=== PATIENT | male | born 1990 ===

== ENCOUNTER 2016-11-25 04:12 | Emergency (ER) | payer MEDICAID ==
[2016-11-25 04:13] VITALS: BMI 34.7
[2016-11-25 04:29] VITALS: BP 131/83; PULSE 71; RESP 16; TEMP 97.9; O2SAT 97
[2016-11-25] MEDS: Sodium Chloride 0.9% 1,000 ML IV STA (05:02)
[2016-11-25 05:07] LABS: BASO % 0.3 % (0.0-2.0); EOS # 0.1 K/uL (0.0-0.7); EOS % 1.6 % (0.0-4.0); HEMATOCRIT 42.8 % (35.0-51.0); LYMPH % 23.1 % (20.0-40.0); MEAN CELL VOLUME 89.4 fl (80.0-94.0); MEAN CORPUSCULAR HEMOGLOBIN 30.9 pg (27.0-31.0); MEAN CORPUSCULAR HGB CONC 34.6 g/dL (33.0-37.0); MEAN PLATELET VOLUME 8.4 fl (7.2-11.7); MONO % 12.2 % (0.0-10.0); NEUT # 5.4 K/uL (1.8-7.0); NEUT % 62.8 % (50.0-75.0); NRBC % 0.2 % (0.0-0.0); RED CELL DISTRIBUTION WIDTH 12.5 % (11.5-14.5); WHITE BLOOD COUNT 8.6 K/uL (4.8-10.8)
[2016-11-25 05:20] LABS: BLOOD UREA NITROGEN 12 mg/dl (9-20); CALCIUM 11.5 mg/dL (8.4-10.2); CARBON DIOXIDE 20 mmol/L (22-30); CHLORIDE 109 mmol/L (98-107); GFR AFRICAN-AMERICAN > 60; GLUCOSE,RANDOM 53 mg/dL (75-110); SODIUM 147 mmol/l (132-148)
--- NOTE | 2016-11-25 05:20 | ED PDOC ---
HPI:Nausea, Vomiting, Diarrhea Time Seen by Provider: 11/25/16 04:20 Chief Complaint (Nursing): Abdominal Pain Chief Complaint (Provider): v/d, abd pain History Per: Patient History/Exam Limitations: no limitations Onset/Duration Of Symptoms: Days Current Symptoms Are (Timing): Still Present Have you had recent travel within the past 21 days to any of the following countries: [place], [place], [place] or [place]?: No Additional Complaint(s): 26yo male presents to the ED with c/o v/d and abdominal pain x 5 days. Patient reports 20 episodes of watery, non-bloody diarrhea. Vomiting has since resolved. Patient felt febrile at home. No sick contacts, recent travel, abdominal surgeries. Past Medical History Reviewed: Historical Data, Nursing Documentation, Vital Signs Vital Signs: Last Vital Signs Temp 97.9 F 11/25/16 04:24 Pulse 71 11/25/16 04:24 Resp 16 11/25/16 04:24 BP 131/83 11/25/16 04:24 Pulse Ox 97 11/25/16 04:24 - Medical History PMH: No Chronic Diseases - Surgical History Surgical History: No Surg Hx - Family History Family History: States: No Known Family Hx - Home Medications Home Medications: Ambulatory Orders Medication Instructions Recorded Dicyclomine [Dicyclomine HCl] 10 mg PO TID #20 cap 11/25/16 Lactobac Cmb #3/Fos/Pantethine 1 cap PO DAILY #14 cap 11/25/16 [Probiotic & Acidophilus 250 mg-1000 Mcg] - Allergies Allergies/Adverse Reactions: Allergies Allergy/AdvReac Type Severity Reaction Status Date / Time No Known Allergies Allergy Verified 11/25/16 04:24 Review of Systems ROS Statement: Except As Marked, All Systems Reviewed And Found Negative Constitutional: Positive for: Other (felt febrile at home ) Gastrointestinal: Positive for: Vomiting, Abdominal Pain, Diarrhea Physical Exam - Reviewed Nursing Documentation Reviewed: Yes Vital Signs Reviewed: Yes - Physical Exam Appears: Positive for: Well, No Acute Distress Head Exam: Positive for: ATRAUMATIC, NORMAL INSPECTION, NORMOCEPHALIC Skin: Positive for: Warm, Dry, Pallor Eye Exam: Positive for: Normal appearance, EOMI, PERRL ENT: Positive for: Normal ENT Inspection Neck: Positive for: Normal, Painless ROM, Supple Cardiovascular/Chest: Positive for: Regular Rate, Rhythm. Negative for: Murmur , Tachycardia Respiratory: Positive for: Normal Breath Sounds. Negative for: Wheezing, Respiratory Distress Gastrointestinal/Abdominal: Positive for: Normal Exam, Bowel Sounds, Soft. Negative for: Tenderness Back: Positive for: Normal Inspection. Negative for: L CVA Tenderness, R CVA Tenderness Extremity: Positive for: Normal ROM. Negative for: Deformity, Swelling Neurologic/Psych: Positive for: Alert, Oriented. Negative for: Motor/Sensory Deficits - Laboratory Results Result Diagrams: 11/25/16 04:40 11/25/16 04:40 - ECG O2 Sat by Pulse Oximetry: 97 Pulse Ox Interpretation: Normal (RA) Medical Decision Making Medical Decision Makin: Impression: viral gastroenteritis Plan: Labs IVF, Pepcid 20mg IVP, Bentyl 10mg PO reassess 530 Pt. feeling much better, will d/c home w/ meds. Return precautions given and advised to f/u w/ PMD. Scribe Attestation: Documented by Raphael Whitehead acting as a scribe for Uvaldo Worthington MD. Provider Scribe Attestation: All medical record entries made by the Scribe were at my direction and personally dictated by me. I have reviewed the chart and agree that the record accurately reflects my personal performance of the history, physical exam, medical decision making, and the department course for this patient. I have also personally directed, reviewed, and agree with the discharge instructions and disposition. Disposition - Clinical Impression Clinical Impression: Gastroenteritis - Disposition Referrals: [facility] [Outside] Disposition Time: 05:30 Condition: IMPROVED Prescriptions: Dicyclomine [Dicyclomine HCl] 10 mg PO TID #20 cap Lactobac Cmb #3/Fos/Pantethine [Probiotic & Acidophilus 250 mg-1000 Mcg] 1 cap PO DAILY #14 cap Instructions: Probiotic (By mouth), Gastroenteritis (ED) Print Language: NIGERIAN
== END 2016-11-25 06:45 | disposition home or self-care (01) ==
LOC: H.ER 04:12
DX: K52.9 Noninfective gastroenteritis and colitis, unspecified (principal); R11.2 Nausea with vomiting, unspecified; R19.7 Diarrhea, unspecified

== ENCOUNTER 2017-09-20 17:58 | Emergency (ER) | payer MEDICAID ==
[2017-09-20 17:58] VITALS: BMI 34.7
[2017-09-20 18:37] VITALS: BP 152/76; PULSE 82; RESP 16; TEMP 98.9; O2SAT 98
[2017-09-20] MEDS ORDERED: Naproxen 500 MG TAB PO STA (20:11)
--- NOTE | 2017-09-20 20:57 | ED PDOC ---
Lower Extremity Pain/Injury Time Seen by Provider: 09/20/17 18:47 Chief Complaint (Nursing): Lower Extremity Problem/Injury Chief Complaint (Provider): Right knee pain History Per: Patient History/Exam Limitations: no limitations Onset/Duration Of Symptoms: Days (x2) Current Symptoms Are (Timing): Still Present Additional Complaint(s): Forrest Hussein is a 27 year old male, with no significant past medical history , who presents to the emergency department complaining of pain and swelling to the right knee onset for x2 days. Patient reports 5 years ago he had a right patella dislocation with possible tendon rupture. Patient states he was recently helping his friend move, he was doing heavy lifting and noted pain and swelling afterwards. He denies any fever, chills, numbness or other injuries. No further medical complaints. PMD: None provided. Past Medical History Reviewed: Historical Data, Nursing Documentation, Vital Signs Vital Signs: Last Vital Signs Temp 98.9 F 09/20/17 18:35 Pulse 82 09/20/17 18:35 Resp 16 09/20/17 18:35 BP 152/76 H 09/20/17 18:35 Pulse Ox 98 09/20/17 18:35 - Medical History PMH: No Chronic Diseases - Surgical History Surgical History: No Surg Hx - Family History Family History: States: Unknown Family Hx - Social History Current smoker - smoking cessation education provided: Yes (light smoker <10 cigarettes daily) Alcohol: Social Drugs: Denies - Home Medications Home Medications: Ambulatory Orders Medication Instructions Recorded Dicyclomine [Dicyclomine HCl] 10 mg PO TID #20 cap 11/25/16 Lactobacillus 3/Fos/Pantethine 1 cap PO DAILY #14 cap 11/25/16 [Probiotic & Acidophilus 250 mg-1000 Mcg] Naproxen 500 mg PO BID #30 tab 09/20/17 - Allergies Allergies/Adverse Reactions: Allergies Allergy/AdvReac Type Severity Reaction Status Date / Time No Known Allergies Allergy Verified 11/25/16 04:24 Review of Systems ROS Statement: Except As Marked, All Systems Reviewed And Found Negative Constitutional: Negative for: Fever, Chills Musculoskeletal: Positive for: Leg Pain (right knee pain w/ swelling) Neurological: Negative for: Numbness Physical Exam - Reviewed Nursing Documentation Reviewed: Yes Vital Signs Reviewed: Yes - Physical Exam Comments: GENERAL APPEARANCE: Patient is awake, alert, oriented x 3, in no acute distress. Patient ambulatory. SKIN: Warm, dry; (-) cyanosis. KNEE: (-) Tenderness, (+) mild effusion, (-) ecchymosis of right knee. (-) deformity. (+) FROM, (-) laxity, (-) distal neurovascular deficit. - ECG O2 Sat by Pulse Oximetry: 98 (RA) Pulse Ox Interpretation: Normal Medical Decision Making Medical Decision Making: Initial Impression: Knee effusion Initial Plan: --Naproxen 500 mg PO --Abhi bandage --Knee Immobilizer --Crutches --Knee right 2 views (AP/LAT) [RAD] --reevaluation XR right knee: no fracture, no dislocation, as read by AWA. 20:50 Abhi wrap and knee immobilizer applied to right knee. Advised patient to rest, ice and elevation. Advised to follow up with orthopedist in 1-2 days without fail. Advised to take medication as prescribed. Return to the emergency room at any time for any new or worsening symptoms. Patient states he fully agrees with and understands discharge instructions. States that he agrees with the plan and disposition. Verbalized and repeated discharge instructions and plan. I have given the patient opportunity to ask any additional questions. ~ Scribe Attestation: Documented by Jaydon Da Silva, acting as a scribe for Shanice Parker PA-C. Provider Scribe Attestation: All medical record entries made by the Scribe were at my direction and personally dictated by me. I have reviewed the chart and agree that the record accurately reflects my personal performance of the history, physical exam, medical decision making, and the department course for this patient. I have also personally directed, reviewed, and agree with the discharge instructions and disposition. Disposition - Clinical Impression Clinical Impression: Knee pain, Knee effusion - Patient ED Disposition Is Patient to be Admitted: No Counseled Patient/Family Regarding: Diagnosis, Need For Followup, Rx Given - Disposition Referrals: [facility] [Outside] Nicki Slater MD [Staff Provider] - Disposition: Routine/Home Disposition Time: 20:30 Condition: STABLE Additional Instructions: Thank you for letting us take care of you today. You were treated for R knee effusion / pain. The emergency medical care you received today was directed at your acute symptoms. If you were prescribed any medication, please fill it and take as directed. It may take several days for your symptoms to resolve. Return to the Emergency Department if your symptoms worsen, do not improve, or if you have any other problems. Please contact your doctor in 2 days for re-evaluation and follow up / or call one of the physicians/clinics you have been referred to that are listed on the Patient Visit Information form that is included in your discharge packet. Bring any paperwork you were given at discharge with you along with any medications you are taking to your follow up visit. Our treatment cannot replace ongoing medical care by a primary care provider (PCP) outside of the emergency department. Thank you for allowing the [facility] team to be part of your care today. If you had an X-Ray : A Radiologist will review the ED reading if any change in treatment is needed we will contact you. 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
--- NOTE | 2017-09-21 10:41 | RAD ---
PROCEDURE: Right Knee Radiographs. HISTORY: pain COMPARISON: None. FINDINGS: BONES: Normal. No fracture. JOINTS: Normal. No osteoarthritis. JOINT EFFUSION: None. OTHER FINDINGS: None. IMPRESSION: No radiographic evidence of acute pathology at the right knee.
== END 2017-09-20 21:35 | disposition home or self-care (01) ==
LOC: H.ER 17:58
DX: M25.561 Pain in right knee (principal); M25.461 Effusion, right knee
CPT/HCPCS: 29530; 73560; 99284; L1830

== ENCOUNTER 2018-04-24 10:20 | Emergency (ER) | payer MEDICAID ==
[2018-04-24 10:21] VITALS: BMI 34.7
[2018-04-24 10:24] VITALS: O2SAT 98
--- NOTE | 2018-04-24 10:57 | ED PDOC ---
Hyperglycemia/Hypoglycemia Time Seen by Provider: 04/24/18 10:35 Chief Complaint (Provider): Hypoglycemia History Per: Patient, Family History/Exam Limitations: no limitations : The patient does not have any of the infectious symptoms listed except for those marked. Additional Complaint(s): Pt is 1 month s/p gastric sleeve placement and has been having episodes of hypoglycemia since then. This morning had generalized weakness and could not get out of bed, checked sugar found to be normal, checked again little while later, found to be 52, called 911, given glucose in field. Pt without symptoms at this time. Pt was advised by surgeon to eat more protein and less carbohydrates. Similar episode when he passed out, evaluated @ [facility] [place]. Past Medical History Reviewed: Nursing Documentation, Vital Signs Vital Signs: Last Vital Signs Temp 98.5 F 04/24/18 10:23 Pulse 71 04/24/18 10:23 Resp 19 04/24/18 10:23 BP 130/65 04/24/18 10:23 Pulse Ox 98 04/24/18 10:23 - Medical History Other PMH: MEN I - Surgical History Other surgeries: Gastric sleeve - Family History Family History: States: Unknown Family Hx - Living Arrangements Living Arrangements: With Family - Social History Current smoker - smoking cessation education provided: No Alcohol: None - Home Medications Home Medications: Ambulatory Orders Medication Instructions Recorded Dicyclomine [Dicyclomine HCl] 10 mg PO TID #20 cap 11/25/16 Lactobacillus 3/Fos/Pantethine 1 cap PO DAILY #14 cap 11/25/16 [Probiotic & Acidophilus 250 mg-1000 Mcg] Naproxen 500 mg PO BID #30 tab 09/20/17 - Allergies Allergies/Adverse Reactions: Allergies Allergy/AdvReac Type Severity Reaction Status Date / Time No Known Allergies Allergy Verified 11/25/16 04:24 Review of Systems Constitutional: Negative for: Fever, Chills Eyes: Negative for: Vision Change Cardiovascular: Negative for: Chest Pain Respiratory: Negative for: Cough, Shortness of Breath Gastrointestinal: Negative for: Nausea, Vomiting, Abdominal Pain, Diarrhea Genitourinary Male: Negative for: Dysuria Musculoskeletal: Negative for: Neck Pain, Back Pain Skin: Negative for: Rash, Lesions Neurological: Positive for: Weakness. Negative for: Headache, Dizziness Physical Exam - Reviewed Nursing Documentation Reviewed: Yes Vital Signs Reviewed: Yes - Physical Exam Appears: Positive for: Well, No Acute Distress Head Exam: Positive for: ATRAUMATIC, NORMAL INSPECTION Skin: Positive for: Normal Color, Warm, Dry Eye Exam: Positive for: Normal appearance, EOMI, PERRL Cardiovascular/Chest: Positive for: Regular Rate, Rhythm Respiratory: Positive for: Normal Breath Sounds. Negative for: Rales, Rhonchi, Wheezing Gastrointestinal/Abdominal: Positive for: Normal Exam, Bowel Sounds, Soft. Negative for: Tenderness Extremity: Positive for: Normal ROM Neurologic/Psych: Positive for: Alert, pattern ruler II-XII, Oriented, Aphasia. Negative for: Motor/Sensory Deficits, Facial Droop - Laboratory Results Result Diagrams: 04/24/18 11:02 04/24/18 11:02 - ECG O2 Sat by Pulse Oximetry: 98 Medical Decision Making Medical Decision Makin yo male with recurrent hypoglycemia after gastric sleeve surgery. - labs - EKG - PO Pt remained stable during ED observation. Findings and plan discussed in detail with patient and sister. Expressed verbal understanding. Disposition - Clinical Impression Clinical Impression: Hypoglycemia, Hypoglycemia after GI (gastrointestinal) surgery - Disposition Referrals: Ernestine Barnard MD [Medical Doctor] - Disposition: Routine/Home Disposition Time: 14:20 Condition: GOOD Additional Instructions: FOLLOW-UP WITH PMD AND SURGERY FOR REEVALUATION. Instructions: Low Blood Sugar in People Without Diabetes Forms: [facility] (Bengali)
[2018-04-24 11:23] LABS: BASO % 0.4 % (0.0-2.0); EOS % 0.3 % (0.0-4.0); HEMOGLOBIN 14.1 g/dL (12.0-18.0); LYMPH % 14.8 % (20.0-40.0); MEAN CELL VOLUME 90.3 fl (80.0-94.0); MEAN CORPUSCULAR HEMOGLOBIN 31.2 pg (27.0-31.0); MEAN CORPUSCULAR HGB CONC 34.6 g/dL (33.0-37.0); MONO # 0.4 K/uL (0.0-0.8); MONO % 5.6 % (0.0-10.0); NEUT # 5.4 K/uL (1.8-7.0); NEUT % 78.9 % (50.0-75.0); RBC 4.5 Mil/uL (4.40-5.90); RED CELL DISTRIBUTION WIDTH 12.7 % (11.5-14.5); WHITE BLOOD COUNT 6.9 K/uL (4.8-10.8)
[2018-04-24 12:20] LABS: ALB/GLOB RATIO 1.4 (1.0-2.1); ALT/SGPT 74 U/L (21-72); AST/SGOT 51 U/L (17-59); BLOOD UREA NITROGEN 10 mg/dl (9-20); CALCIUM 11.4 mg/dL (8.4-10.2); GFR NON-AFRICAN AMERICAN > 60
[2018-04-24 15:00] VITALS: BP 120/62; PULSE 68; RESP 16; TEMP 98.6
== END 2018-04-24 15:04 | disposition home or self-care (01) ==
LOC: H.ER 10:20
DX: R73.9 Hyperglycemia, unspecified (principal); Z98.890 Other specified postprocedural states